=== PATIENT | female | born 1965 | race Caucasian/White ===

== ENCOUNTER 2017-06-19 11:57 | Emergency (ER) | payer OTHER ==
[~2017-06-19] VITALS: Ht 160 cm; Wt 81.6 kg
[2017-06-19 12:02] VITALS: BP 156/112
[2017-06-19] MEDS ORDERED: LISINOPRIL20 M1 PO (12:32)
[2017-06-19] MEDS ORDERED: METOPROLOL TART50 M1 PO (12:33)
[2017-06-19] MEDS ORDERED: ATORVASTATIN CA20 M1 PO (12:34)
--- NOTE | 2017-06-19 12:47 | ED SKIN/ALLERGY COMPLAINT ---
History of Present Illness General Chief Complaint: Skin Rash/ Abcess Stated Complaint: ? POISON YASMIN Source: patient Exam Limitations: no limitations Vital Signs & Intake/Output Vital Signs & Intake/Output Vital Signs Date Time Temp Pulse Resp B/P B/P Pulse O2 O2 Flow FiO2 Mean Ox Delivery Rate 06/19 1202 96.0 90 20 156/112 100 Room Air Allergies Coded Allergies: No Known Allergies (06/19/17) Reconcile Medications Atorvastatin Calcium 20 MG TABLET 1 TAB PO DAILY CHOLESTEROL (Reported) Hydrocortisone 2.5 % CREAM..G. 1 TRISTAN TOP BID POISON YASMIN apply to affected area(s) Lisinopril 20 MG TABLET 1 TAB PO DAILY HEART (Reported) Methylprednisolone. (Medrol) 4 MG TAB.DS.PK 1 DP PO AD POISON YASMIN 6 on day 1 then reduce by one tablet daily until gone Metoprolol Tartrate 50 MG TABLET 1 TAB PO BID HEART (Reported) Triage Note: PT TO ED C/O RASH/HIVES TO B/L ARMS, B/L LEGS AND FACE. NOTICED YESTERDAY, WORSE TODAY. PT STATES [place] AND STARTED WITH RASH TO ARMS AND LEGS FRIDAY. PT STATES SHE WOKE UP THIS AM WITH FACIAL SWELLING. HAS NOT TAKEN BENADRYL. HAS BEEN USING OTC GOLD TIJERINA CREAM WITH NO RELIEF. FACE NOTICABLY SWOLLEN. NO SOB OR DIFF BREATHING NOTED. C/O BURNING PAIN TO FACE. Triage Nurses Notes Reviewed? yes Onset: Gradual Duration: getting worse Severity: severe Severity Numbers: 7 Location: generalized Possible Factors: exposure to allergen HPI: Patient is a 51-year-old female who presents emergency that 2 days ago patient was gardening outside where she noticed a gradual onset of bilateral upper extremity itching vesicular rash when the past 2 days the rash has now spread to her face and lower extremities. Patient denies any difficulty swallowing difficulty breathing tongue swelling lip swelling shortness of breath or cough. Denies any fever chills. States that symptoms are very similar to previous poison yasmin exposures (TONIE GREENE,WOOD) Past History Travel History Traveled to [place] past 21 day No Medical History Any Pertinent Medical History? see below for history Cardiovascular: hypertension, hyperlipidemia Surgical History Surgical History: non-contributory Psychosocial History What is your primary language Dutch Tobacco Use: Current Daily Use Daily Tobacco Use Amount/Type: => 5 Cigarettes daily ETOH Use: denies use Illicit Drug Use: denies illicit drug use Family History Hx Contributory? No (WOOD AMOR) Review of Systems Review of Systems Constitutional: Reports: no symptoms. EENTM: Reports: no symptoms. Respiratory: Reports: no symptoms. Cardiovascular: Reports: no symptoms. GI: Reports: no symptoms. Genitourinary: Reports: no symptoms. Musculoskeletal: Reports: no symptoms. Skin: Reports: see HPI, rash. Neurological/Psychological: Reports: no symptoms. Hematologic/Endocrine: Reports: no symptoms. Immunologic/Allergic: Reports: no symptoms. All Other Systems: Reviewed and Negative (WOOD AMOR) Physical Exam Physical Exam General Appearance: no apparent distress, alert, comfortable Skin: intact Comments: Well-developed well-nourished person in no acute distress HEENT: Normal EENT exam, extraocular motion intact, no nystagmus. Pupils equally round and reactive to light and accommodation. Nose is atraumatic. External auditory canal and Tympanic membranes clear. Pharynx normal. No swelling or edema. No tongue swelling no lip swelling no pharyngeal swelling Neck: Supple, no lymphadenopathy, normal range of motion without pain or tenderness Back: Nontender, no CVA tenderness. Cardiovascular: Regular rate and rhythms no murmurs rubs or gallops, normal JVP Respiratory: Chest nontender. No respiratory distress.breath sounds clear to auscultation bilaterally Abdomen: Soft, nontender nondistended, no appreciable organomegaly. Normal bowel sounds. No ascites Extremity: No edema, no calf tenderness to palpation, normal and equal pulses. Neuro: Alert oriented x3, motor sensory normal, Skin: Noted generalized upper extremity lower extremity anterior torso posterior torso and facial bilateral scattered erythematous linear clustered vesicular rash Psych: Mood and affect is normal, memory and judgment is normal. (WOOD AMOR) Progress Differential Diagnosis: abscess/cellulitis, allergic reaction, anaphylaxis, angioedema, contact dermatitis, drug reaction, meningitis/sepsis, piyriasis rosea Plan of Care: Current Medications Sig/Modesta Start time Last Medication Dose Stop Time Status Admin Famotidine 20 MG ONCE ONE 06/19 1315 AC (Pepcid) 06/19 1316 Prednisone 60 MG ONCE ONE 06/19 1315 AC 06/19 1316 Due to history of present illness and exam findings patient has concerns of poison yasmin dermatitis. No concerns of anaphylaxis OR angioedema. No stridor noted (WOOD AMOR) Departure Departure Disposition: HOME OR SELF CARE Condition: Stable Clinical Impression Primary Impression: Poison yasmin dermatitis Referrals: CELSA MONZON,HOSEA Matos (PCP/Family) Additional Instructions: As discussed begin [id number] Pepcid and Benadryl as directed for itching complaints, begin the prescription of Medrol Dosepak tomorrow as you've received this medication the emergency room today. Begin the prescription hydrocortisone cream and apply as directed. If no better on Friday follow-up to primary care doctor. Prescription is waiting at [facility]. If symptoms worsen or if he develop a new symptom return to emergency room immediately Departure Forms: Customer Survey General Discharge Information Prescriptions: Current Visit Scripts Methylprednisolone. (Medrol) 1 DP PO AD #1 DP 6 on day 1 then reduce by one tablet daily until gone Hydrocortisone 1 TRISTAN TOP BID #60 GM apply to affected area(s) (WOOD AMOR) PA/VARNISHER Co-Sign Statement Statement: ED Attending supervision documentation- [] I saw and evaluated the patient. I have also reviewed all the pertinent lab results and diagnostic results. I agree with the findings and the plan of care as documented in the PA's/VARNISHER's documentation. [X] I have reviewed the ED Record and agree with the PA's/VARNISHER's documentation. [] Additions or exceptions (if any) to the PAs/VARNISHER's note and plan are summarized below: [] (JOANNE MOZNON,BRYCE Alvarez)
[2017-06-19] MEDS ORDERED: HYDROCORTISO453.6 G2 TOP (13:10)
[2017-06-19] MEDS ORDERED: MEDROL4 M2 PO (13:10)
== END 2017-06-19 13:24 ==
LOC: ERH 11:57
DX: L23.7 Allergic contact dermatitis due to plants, except food (principal)